=== PATIENT | male | born 1945 ===

== ENCOUNTER 2017-02-28 16:18 | Inpatient (IN) | payer MEDICARE ==
[2017-02-28] MEDS ORDERED: Ondansetron INJ* 2 MG/ML VIAL IV PRN (18:34)
[2017-02-28] MEDS ORDERED: NS 0.9% 1000 ML* 1,000 ML IV SCH (18:45)
[2017-02-28] MEDS ORDERED: Propofol* 100 ML IV SCH (19:00)
[2017-02-28] MEDS ORDERED: Meropenem 1 GM PREMIX(*) 1 GM/50 ML BAG IV SCH ×2 (19:00→20:00)
[2017-02-28 19:14] LABS: BUN/Creatinine Ratio 11.8 (8-20); Calcium 6.9 mg/dL (8.6-10.3); EGFR African American 41.6 (>60); EGFR Non-African American 32.4 (>60); Potassium 3.5 mmol/L (3.5-5.0)
--- NOTE | 2017-02-28 19:15 | RAD ---
Indication: Sepsis, LEFT flank pain. Reported LEFT ureteral stone on outside CT unavailable for direct comparison. Comparison: No relevant prior exams available on the [facility] PACS. Technique: Renal ultrasound. Report: 13.5 x 4.9 x 4.7 cm RIGHT kidney demonstrates normal echotexture and absence of conspicuous focal lesions, stones, or hydronephrosis. 14.5 x 6.9 x 6.7 cm LEFT kidney with mildly lobular cortical contour demonstrates normal cortical echogenicity. Moderate caliectasis. Conspicuous stones or focal renal lesions. Negative for conspicuous perinephric fluid. The liver is echogenic consistent with fatty infiltration. IMPRESSION: Moderate LEFT unilateral caliectasis and renal enlargement.
[2017-02-28 19:20] LABS: Troponin I 0.16 ng/mL (<0.04)
--- NOTE | 2017-02-28 19:22 | RAD ---
Indication: Intubated, respiratory failure. Comparison: None. Technique: Semiupright AP 1903 hours Report: Obese body habitus limits image quality. Endotracheal tube tip is 5 cm above the Monica. Mild prominence of the interstitial markings. No focal pulmonary lesion evident. Mild eventration of the RIGHT hemidiaphragm. No pleural effusion or pneumothorax evident. Mild cardiomegaly. Mild prominence of the upper lung zone central pulmonary vasculature. IMPRESSION: The constellation of findings favors mild pulmonary vascular congestion.
[2017-02-28] MEDS: NS 0.9% 1000 ML* 2,000 ML IV ONE (19:27)
[2017-02-28] MEDS ORDERED: Midazolam* 1 MG/ML 2 ML VIAL (2 MG) ONE (19:37)
[2017-02-28] MEDS ORDERED: Midazolam* 1 MG/ML 2 ML VIAL (2 MG) IV ONE (19:38)
[2017-02-28 19:42] LABS: Magnesium 1.3 mg/dL (1.9-2.7)
[2017-02-28] MEDS ORDERED: Magnesium Sulfate 2 GM IV* 2 GM/50 ML BAG IVPB ONE (19:44)
[2017-02-28] MEDS ORDERED: Dextrose 50% Syringe 50 ML* 25 GM/50 ML SYRINGE IV PUSH PRN (19:55)
[2017-02-28] MEDS ORDERED: Norepinephrine 16MCG/ML IVPRE* 4,000 MCG/250 ML BAG IV SCH (20:00)
[2017-02-28 20:05] LABS: BIPAP vent; EPAP 0; FIO2 50; IPAP 20
[2017-02-28 20:08] LABS: PCO2 Arterial 45 mmHg (35-45)
[2017-02-28 20:39] LABS: Hematocrit 34 % (42-52); Hemoglobin 11.5 g/dl (14.0-18.0); Mean Corpuscular HGB Conc 33 g/dl (31-36); Mean Corpuscular Hemoglobin 31 pg (27-31); Mean Corpuscular Volume 93 fL (80-94); Red Blood Count 3.72 10^6/ul (4.0-5.4); Red Cell Distribution Width 14 % (10.5-15); White Blood Count 12.1 10^3/ul (3.5-10.8)
--- NOTE | 2017-02-28 20:42 | RAD ---
Indication: RIGHT subclavian central venous catheter placement. Orogastric tube placement. Comparison: 1903 hours chest radiograph of the same date. Technique: Semisupine upper abdomen and semiupright AP chest 2007 hours Report: Endotracheal tube tip 3.5 cm above the Monica. Nasogastric tube tip at level of gastric body. Mild prominence of the interstitial markings. Grossly clear pleural spaces. Negative for pneumothorax. Cardiomegaly. Unremarkable central pulmonary vasculature. IMPRESSION: Prominence of the interstitial markings which may reflect chronic obstructive pulmonary disease however bronchopneumonia is not excluded. Correlate with clinical assessment.
[2017-02-28 20:43] LABS: Add Diff/Slide Review? Slide Review Added; Comments Flag Yes
[2017-02-28 21:34] LABS: Immature Granulocytes 29 % (0-9); Neutrophil % 64 % (38-83); RBC Morphology Normal (Normal)
[2017-02-28 21:35] LABS: Mean Platelet Volume 10 um3 (7.4-10.4)
[2017-02-28] MEDS ORDERED: Heparin VIAL(*) 5000 UNITS/ML VIAL (FIVE THOUSAND) SUBCUT SCH (22:00)
--- NOTE | 2017-02-28 22:09 | HP ---
HISTORY AND PHYSICAL: DATE OF ADMISSION: 02/28/17 PRIMARY CARE PROVIDER: Dr. Caceres. ATTENDING PHYSICIAN WHILE IN THE HOSPITAL: Dr. Jonah Ervin* ( report being dictated by Linda Garcia NP). CHIEF COMPLAINT: Abdominal pain. HISTORY OF PRESENT ILLNESS: Mr. Prabhakar is a 71-year-old male patient. He has a history of hyperlipidemia, BPH, diabetes, hypertension, history of an VT, CAD , history of arthritis. Please note that the patient is currently intubated and he is a transfer from [facility]. Most of the H and P is obtained from reviewing the patient's medical records. The patient had presented yesterday with complaints of severe left pain in his abdomen and was also noted to have chills and fever. He was brought to the emergency department by his and ultimately he was found to be septic. Presumably, the initial source was it was diverticulitis; however, a CAT scan was obtained. Later on during the admission, it was noted that he had mild left hydroureteronephrosis and moderate left perinephritic fat stranding and a 0.4-cm calculus in the distal left ureter, 0.8 cm proximal to the left UVJ. The patient was admitted. He was started on IV fluids. He was given antibiotics. Unfortunately, he went down to ultrasound today to reevaluate the hydronephrosis and to see if the stone had passed. He deteriorated while he down on ultrasound, he went into respiratory failure. He started getting rigors. He was emergently intubated and the patient was accepted and transferred here to [facility]. The patient was evaluated up here. He again is nonverbal. He is intubated. He is following commands. He does not appear to be in any acute distress. He again is really unable to give any information. The is present and states that what she noted today was that he suddenly became short of breath, dyspneic , and she reported me that the blood cultures have come back positive with gram- negative rods in his blood. He was transferred here for higher level of care because he was in a septic shock. PAST MEDICAL HISTORY: According to his includes: 1. Hypertension. 2. BPH. 3. Diabetes. 4. Hyperlipidemia. 5. CAD. 5. He has a history of VT. 6. History of arthritis. PAST SURGICAL HISTORY: Unable to be obtained currently. MEDICATIONS: Home meds according to a list obtained from [facility], we will try to verify this list if possible, include: 1. Lisinopril 20 mg p.o. b.i.d. 2. Aspirin 81 mg daily. 3. Atenolol 25 mg p.o. b.i.d. 4. Avodart 0.5 mg p.o. daily. 5. Xanax 0.5 mg p.o. daily as needed for anxiety. 6. Hydrochlorothiazide 25 mg daily. 7. Metformin 750 mg p.o. daily. 8. Simvastatin 20 mg p.o. daily. 9. Trulicity 1.5 mg subcu weekly. 10. Flomax 0.4 mg p.o. daily. ALLERGIES TO MEDICATIONS: Include PENICILLIN and CEFACLOR. FAMILY HISTORY: His family history is reviewed and essentially noncontributory. SOCIAL HISTORY: Surrogate decision maker is his . He does smoke a pipe. He does not use any recreational drug. He does not drink. He is a retired computer technical support specialist. REVIEW OF SYSTEMS: There is a documented fever at [facility] of 105. His temperature now is 98. There is report of chills. There is no double vision. No reports of rhinorrhea. There was abdominal pain. There was nausea. The review of systems is positive from my HPI, but again full review of systems unable to be obtained because the patient is currently intubated. PHYSICAL EXAMINATION GENERAL: At the time, Mr. Prabhakar is a 71-year-old male patient. He is sitting in the hospital bed. He does not appear to be in any acute distress. He will awake and follow simple commands. VITAL SIGNS: Reveal initially blood pressure 87/54 with a pulse of 97, respirations are 24, O2 sat 98%, temperature 98.9. HEENT: Head: Atraumatic, normocephalic. Eyes: EOMs are intact. Sclerae anicteric and not pale. Throat: Oral mucosa appears to be dry. No oropharyngeal erythema. NECK: Supple. LUNGS: Clear to auscultation bilaterally. HEART: Sounds S1, S2. Regular rate and rhythm. No murmurs, rubs, or gallops. ABDOMEN: Soft, flat, nontender. Bowel sounds present. He had no CVA tenderness. EXTREMITIES: He is able to move all 4 extremities on command. NEUROLOGIC: He awakens his eyes. He follows my finger. His data entry assistant were equal. His tongue is midline. No facial drooping. He is able to move all 4 extremities. His pupils are equal, reactive to light. SKIN: Intact. DIAGNOSTIC STUDIES/LAB DATA: I have some labs from here. I have an INR of 1.21. His sodium was 136, potassium of 3.5, chloride of 105, bicarb 22, BUN 24, creatinine of 2.03, glucose 171, and his mag was 1.3. Troponin was 0.16. He had an ABG done over at [facility] where it showed a pH of 7.23, PCO2 of 55, bicarb of 23. His last lactic acid at 2 o'clock today was 3.4 and troponin at 3 o'clock was 0.07. He did have a CBC which showed a WBC of 9.7, RBC of 4.59, hemoglobin 14.4, hematocrit was noted at 42, platelet count of 94. Urine obtained showed 2 + blood, positive nitrite, 1+ leukocyte esterase, present urine bacteria. He was Hemoccult positive. In addition to this, he had a CTA of the abdomen and pelvis done over at [facility], which revealed, conclusion: Mild left hydroureteronephrosis and moderate left perinephritic fat stranding, 0.4-cm calculus in the distal left ureter, 0.8 cm proximal to the left UVJ, calculus in the urinary bladder next to the right UVJ, left sigmoid colon diverticula without evidence for acute diverticulitis, hepatic steatosis, bilateral fat containing inguinal hernias. He had a renal ultrasound done here at [facility]. Renal ultrasound shows a moderate left unilateral and renal enlargement. He had a chest x-ray obtained today as well which showed constellation of findings favors mild pulmonary vascular congestion. EKG is pending at this point. Old medical records reviewed. ASSESSMENT AND PLAN: Mr. Prabhakar is a 71-year-old male patient coming into [facility] for management of septic shock secondary to nephrolithiasis and hydronephrosis with pyelonephritis. He was accepted in care by Dr. Ervin and we were asked to evaluate for admission. Unfortunately , the patient will be transferred because at this point we do not have Urology backup and we do not have IR backup as well. I discussed the case at length with Dr. Ervin, who is unaware that we did not have Urology backup and at this point, we will be transferring him to a tertiary care center, [facility] , to a Dr. Tan who accepted the patient in transfer for further management. While the time he is here, I will continue the propofol drip for sedation. He is on APR vent settings, tolerating this well. I will cycle his troponins, is most likely demand ischemia as why he has an elevated troponin. We will get an EKG. I will try and get a CBC and a lactic acid. I am going to give him a 3 L bolus and we will go ahead and put him on Levophed, but we cannot maintain a MAP rate greater than 65. I do note that he has significant hematuria as well. I do think he needs again urological backup the fact that he will need either stenting or IR placement of a nephrostomy tube. The patient at this point again will be continued on meropenem. We will hydrate him aggressively and again start Levophed and propofol as well and we will continue to follow. TIME SPENT: Critical care time spent on this admission was approximately 80 minutes, greater than half the time spent [id number] with the patient; other half time spent going over the plan of care. I did discuss the plan of care with Dr. Ervin; he is in agreement. LINDA GARCIA NP ADDENDUM TO HISTORY AND PHYSICAL: The patient was seen and then quickly transferred to [facility]. [facility] was contacted and the patient was accepted in transfer to Dr. Tan's service in the medical ICU at [facility]. The patient was started on Levophed here at the hospital. He was given additional 3 L of fluids. The patient's repeat CBC, CMP and EKG are all pending at this point. I did get a repeat ABG as well. A subclavian line was placed by Dr. Bailey. I refer you to his operative report for details. We are just waiting for placement confirmation and if again confirmed, we will go ahead and start him on Levophed as after 3 L, the patient's blood pressure did remain in the 90s systolically. His physical exam is unchanged from when I just recently evaluated him and again , he is being transferred to [facility] for urological evaluation or possible IR intervention. He may need a nephrostomy tube or a ureteral stenting, which we cannot offer at this time at [facility] and again , we will continue maximum medical therapy in the form of meropenem, IV fluids, pressors, and continue ventilatory support for the respiratory failure secondary to septic shock. LINDA GARCIA NP CC: Dr. Caceres* [id number]/[facility] #: [id number]/[facility] #: [id number] BUTCH
[2017-03-01] MEDS ORDERED: Insulin LISPRO* 1 UNITS UNIT SUBCUT SCH
[2017-03-01 00:21] VITALS: BP 88/60
--- NOTE | 2017-03-01 03:54 | HP ---
HISTORY AND PHYSICAL: ADDENDUM: The patient was seen and then quickly transferred to [facility]. [facility] was contacted and the patient was accepted in transfer to Dr. Tan's service in the medical ICU at [facility]. The patient was started on Levophed here at the hospital. He was given additional 3 L of fluids. The patient's repeat CBC, CMP and EKG are all pending at this point. I did get a repeat ABG as well. A subclavian line was placed by Dr. Bailey. I refer you to his operat ramiro report for details. We are just waiting for placement confirmation and if again confirmed, we w ill go ahead and start him on Levophed as after 3 L, the patient's blood pressure did remain in the 90s systolically. His physical exam is unchanged from when I just recently evaluated him and again, he is being transferred to [facility] for urological evaluation or possible IR interven tion. He may need a nephrostomy tube or a ureteral stenting, which we cannot offer at this time at [facility] and again, we will continue maximum medical therapy in the form of meropenem, IV fluids, pressors, and continue ventilatory support for the respiratory failure secondary to septi c shock. LINDA CAPONE NP [id number]/[facility] #: [id number]
--- NOTE | 2017-03-01 04:19 | PRO ---
CC: [facility] Critical Care Team; [facility] PROCEDURE NOTE: DATE OF PROCEDURE: 02/28/17 I was requested by the emergency room staff who was contacted by the ICU team to evaluate Mr. Prabhakar for a triple-lumen catheter placement. I discussed the case also with the hospitalists covering e case. Mr. Prabhakar is an unfortunate 71-year-old gentleman with sepsis, possibly secondary to urosepsis, who was transferred to our institution for planned Urology input and the patient was noted to be septic with low blood pressures and after multiple fluid boluses, still remained with a low blood pressure and recommendation from the ICU team was to start the patient on pressors and transfer the patient due to no Urology coverage. Throughout this plan of transfer, the hope was that the patient would be able to have a possible Lev ophed drip. I came up to evaluate the patient, who was intubated, sedated. I discussed the case wi the hospitalist team as well as the nursing staff. Consent was obtained. After reviewing the art, I sterilely prepped the right groin. A time-out was performed and the right femoral vein was a ccessed and a wire inserted over the needle. The wire would not advance more than approximately 10 cm without significant resistance, we were unable to pass it any deeper. A second stick into this f emoral vein yielded the same problem. This was felt possibly secondary to the patient's body habitu s. Pressure was held at this site and attention was then turned towards the right neck. After prepping the right neck sterilely, the right IJ vein was easily accessed, but again a wire cou ld not be passed through the catheter. We had good venous flow and the wire would only insert appro ximately 10 cm. I did not have advanced wires in the ICU setting to do any additional manipulation. We also did not have fluoroscopy and the patient was a planned transfer. For this reason, I held pressure at the site. A small hematoma was apparent at the right neck and then we shifted our atten tion to the right subclavian area. This area was prepped sterilely and again the subclavian vein wa s easily accessed. This time, a wire was inserted, at first giving some difficulty along the way, b ut ultimately was able to be advanced freely. We then utilized Seldinger technique to place a 20-cm triple- lumen catheter. This was placed and wire removed. It was marked at approximately the 15 c m polo and then sutured to the skin and a sterile dressing was applied. All 3 ports were flushed wit h saline after blood was easily aspirated. The patient tolerated this procedure and was handed back to the hospitalist service for this planned complicated discharge. This did represent a difficult case and took approximately 1 hour, which represents over twice the a nticipated time for such a procedure, this was secondary to the patient's body habitus with a body m ass index of 39, but also may be significant for possible coagulopathy. [id number]/[facility] #: [id number]
== END 2017-02-28 21:00 | disposition short-term general hospital (02) | DRG 871 ==
LOC: ICU 18:26
PROVIDERS: ADMIT Internal Medicine Critical Care Medicine; ATTEND Internal Medicine Critical Care Medicine
PROC: 02HV33Z Insertion of Infusion Device into Superior Vena Cava, Percutaneous Approach (ICD-10-PCS; principal; 2017-02-28)
PROC: 0DH67UZ Insertion of Feeding Device into Stomach, Via Natural or Artificial Opening (ICD-10-PCS; 2017-02-28)
PROC: 3E043XZ Introduction of Vasopressor into Central Vein, Percutaneous Approach (ICD-10-PCS; 2017-02-28)
DX: A41.9 Sepsis, unspecified organism (principal); R65.21 Severe sepsis with septic shock; J96.90 Respiratory failure, unspecified, unspecified whether with hypoxia or hypercapnia; N13.6 Pyonephrosis; E78.5 Hyperlipidemia, unspecified; N40.0 Benign prostatic hyperplasia without lower urinary tract symptoms; E11.9 Type 2 diabetes mellitus without complications; I10 Essential (primary) hypertension; I25.10 Atherosclerotic heart disease of native coronary artery without angina pectoris; M19.90 Unspecified osteoarthritis, unspecified site; F17.200 Nicotine dependence, unspecified, uncomplicated; R79.89 Other specified abnormal findings of blood chemistry; I25.2 Old myocardial infarction; Z88.0 Allergy status to penicillin; Z88.1 Allergy status to other antibiotic agents
CPT/HCPCS: 36415; 36600; 71010; 76775; 80048; 82803; 83605; 83735; 84484; 85025; 85610; 87040; 87077; 87205; 93005; 94002; J2185; J2250; J2704